=== PATIENT | female | born 1965 | race Caucasian/White ===

== ENCOUNTER 2016-06-17 08:57 | Outpatient (CLI) | payer OTHER ==
[~2016-06-17 08:57] MED LIST: IBUPROFEN400 MG PO; MULTIPLE VITAMIN PO; PLAQUENIL200 M1 PO
--- NOTE | 2016-06-17 11:28 | DIAGNOSTIC IMAGING REPORT ---
PROCEDURE: US COMPLETE PELVIC W/TRANSVAG INDICATION: Abnormal uterine bleeding TECHNIQUE: Transabdominal and endovaginal alvarez scale and color Doppler sonographic images of the female pelvis were obtained. COMPARISON: 07/05/2015, 01/21/2015, 12/07/2014 FINDINGS: TRANSABDOMINAL SCANS: Anteverted uterus measures approximately 9.4 cm in length. Lobular contour and heterogeneous echotexture. Normal adnexa without suspicious mass. The visible portion of the urinary bladder is normal. No significant free pelvic fluid. TRANSVAGINAL SCANS: The uterus is in position and has a heterogeneous myometrial echotexture. It measures 8.4 x 5.6 x 6.4 cm. The right fundal aspect of the myometrium is replaced by a heterogeneous solid mass measuring 5.2 x 4.1 x 3.7 cm, not measured, but present previously. A partially exophytic/subserosal fibroid anteriorly measures 2.1 x 1.7 x 1.4 cm. There is a peripherally calcified mass in the posterior midbody measuring 2.6 cm. The endometrium is partially obscured but measures approximately 6 mm in thickness. No endometrial fluid collections or suspicious masses. The structure felt to be the right ovary measures approximately 1.5 cm. No convincing vascularity. The left ovary was only seen transabdominally. It measures 2.6 x 1.9 x 3.0 cm, has normal blood flow, and contains a 1.7 cm dominant follicle. No suspicious adnexal masses or free pelvic fluid. IMPRESSION: 1. Fibroid uterus with the largest fibroid measuring 5.2 cm replacing much of the right fundus, and partially obscuring the endometrium. 2. The visible endometrium is normal thickness for a premenopausal female. 3. Right ovary was not convincingly visualized, but there is no abnormal adnexal mass.
== END 2016-06-17 23:00 ==
LOC: US SRH 08:57
DX: D25.9 Leiomyoma of uterus, unspecified (principal)